=== PATIENT | female | born 1950 | race Caucasian/White ===

== ENCOUNTER 2021-02-05 15:36 | Observation (INO) | payer MEDICARE, OTHER ==
[2021-02-05] MEDS ORDERED: Metoclopramide 10 MG/2 ML SDV IVPUSH ONE (16:11)
[2021-02-05] MEDS ORDERED: diphenhydrAMINE 50 MG/ML SDV IVPUSH ONE (16:11)
--- NOTE | 2021-02-05 16:11 | EDM.PDOC ---
ED HPI GENERAL MEDICAL PROBLEM - General Stated Complaint: VOMITING AND DIZZINESS Time Seen by Provider: 02/05/21 15:40 Source of Information: Reports: Patient, Significant Other History Limitations: Reports: No Limitations - History of Present Illness INITIAL COMMENTS - FREE TEXT/NARRATIVE: Patient presents with acute onset severe nausea and vomiting. It started a little over an hour ago (between [id number]). 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 She at both breakfast and lunch at the school and felt fine until the N/V along with a single episode of diarrhea hit. She has vo mited around 5-6 times. Ambulance brought her and gave her a dose of Zofran 4 mg IV at the school and another dose en route. She is still complaining of severe nausea; denies any other symptoms. She has vomited and dry heaved a few times here in ER also. Her tells me that around ten years ago she had very similar symptoms after presumed food poisoning (fish); he had eaten the same thing and had no symptoms. He says her symptoms lasted 8 hours that time. Today at the school she ate both meals the same as the rest of the school ate; she did have fish last night for supper. - Related Data Allergies Allergy/AdvReac Type Severity Reaction Status Date / Time No Known Allergies Allergy Verified 02/05/21 16:01 Home Meds: Home Meds Calcium Carb & Citrate/Vit D3 [Calcium + Vitamin D3 Caplet] 1 each PO DAILY 06/23/13 [History] Levothyroxine 25 mcg PO DAILY 06/23/13 [History] Raloxifene [Evista] 60 mg PO DAILY 06/23/13 [History] Past Medical History - Past Health History Medical/Surgical History: Denies Medical/Surgical History Social & Family History - Living Situation & Occupation Living situation: Reports: , with Significant Other ED ROS GENERAL - Review of Systems Review Of Systems: See Below Constitutional: Reports: Malaise. Denies: Fever, Chills HEENT: Denies: Ear Pain, Throat Pain, Vision Change Respiratory: Denies: Shortness of Breath, Cough Cardiovascular: Denies: Chest Pain, Lightheadedness, Syncope GI/Abdominal: Reports: Diarrhea (once), Nausea, Vomiting. Denies: Abdominal Pain, Constipation : Denies: Dysuria, Flank Pain Musculoskeletal: Denies: Neck Pain, Shoulder Pain, Arm Pain, Back Pain, Hand Pain Skin: Denies: Cyanosis, Jaundice, Mottled, Pallor, Diaphoresis Neurological: Denies: Confusion, Dizziness, Headache, Seizure, Syncope, Trouble Speaking, Difficulty Walking Psychiatric: Denies: Agitation, Anxiety, Confusion ED EXAM, GI/ABD - Physical Exam Exam: See Below Exam Limited By: No Limitations General Appearance: Alert, WD/WN, No Apparent Distress Eyes: Bilateral: Normal Appearance, EOMI Ears: Normal External Exam, Hearing Grossly Normal Nose: Normal Inspection, No Blood Throat/Mouth: Normal Inspection, Normal Lips, Normal Voice, No Airway Compromise Head: Atraumatic, Normocephalic Neck: Normal Inspection, Full Range of Motion Respiratory/Chest: No Respiratory Distress, Lungs Clear, Normal Breath Sounds, No Accessory Muscle Use Cardiovascular: Regular Rate, Rhythm, No Murmur GI/Abdominal Exam: Normal Bowel Sounds, Soft, Non-Tender, No Organomegaly, No Distention Back Exam: Normal Inspection, Full Range of Motion. No: CVA Tenderness (L), CVA Tenderness (R) Extremities: Normal Inspection, Normal Range of Motion Neurological: Alert, Oriented, Normal Cognition, No Motor/Sensory Deficits Psychiatric: Normal Affect, Normal Mood Skin Exam: Warm, Dry, Intact, Normal Color, No Rash Course - Vital Signs Last Recorded V/S: Last Vital Signs Temp 97.9 F 02/05/21 21:00 Pulse 65 02/05/21 21:00 Resp 18 02/05/21 21:00 BP 109/65 02/05/21 21:00 Pulse Ox 99 02/05/21 21:00 - Orders/Labs/Meds Labs: Laboratory Tests 02/05/21 02/05/21 02/05/21 Range/Units 15:15 15:15 21:35 WBC 7.35 (5.00-10.00) 10^3/uL RBC 4.02 (3.80-5.50) 10^6/uL Hgb 11.8 L (12.0-16.0) g/dL Hct 36.3 L (37.0-47.0) % MCV 90.3 (82.0-92.0) fL MCH 29.4 (27.0-31.0) pg MCHC 32.5 (32.0-36.0) g/dL RDW 13.6 (11.5-14.5) % Plt Count 209 (150-400) 10^3/uL MPV 11.5 H (7.4-10.4) fL Immature Gran % (Auto) 0.1 (0.0-5.0) % Neut % (Auto) 49.0 L (50.0-70.0) % Lymph % (Auto) 41.2 H (20.0-40.0) % Gregory % (Auto) 7.2 (2.0-8.0) % Eos % (Auto) 2.0 (1.0-3.0) % Baso % (Auto) 0.5 (0.0-1.0) % Neut # (Auto) 3.59 (2.50-7.00) 10^3/uL Lymph # (Auto) 3.03 (1.00-4.00) 10^3/uL Gregory # (Auto) 0.53 (0.10-0.80) 10^3/uL Eos # (Auto) 0.15 (0.10-0.30) 10^3/uL Baso # (Auto) 0.04 (0.00-0.10) 10^3/uL Immature Gran # (Auto) 0.01 (0.00-0.50) 10^3/uL Sodium 139 (136-145) mmol/L Potassium 3.5 (3.5-5.1) mmol/L Chloride 103 (98-107) mmol/L Carbon Dioxide 24.2 (21.0-32.0) mmol/L Anion Gap 15.3 H (5-15) mmol/L BUN 23 H (7-18) mg/dL Creatinine 0.72 (0.51-1.17) mg/dL Est Cr Clr Drug Dosing TNP Estimated GFR (MDRD) > 60 mL/min Glucose 105 (70-140) mg/dL Calcium 8.9 (8.7-10.3) mg/dL Total Bilirubin 0.3 (0.2-1.0) mg/dL AST 16 (15-37) U/L ALT 24 (14-63) U/L Alkaline Phosphatase 49 (46-116) U/L C-Reactive Protein < 0.4 (0.0-0.9) mg/dL Total Protein 6.9 (6.4-8.2) g/dL Albumin 3.51 (3.40-5.00) g/dL Lipase 129 (73-393) U/L SARS CoV-2 RNA Rapid RYAN Negative (NEGATIVE) Meds: Medications Discontinued Medications Generic Name Dose Route Start Last Admin Trade Name Laurie PRN Reason Stop Dose Admin Diphenhydramine HCl 25 mg 02/05/21 16:11 02/05/21 16:22 Diphenhydramine 50 Mg/Ml Sdv IVPUSH 02/05/21 16:12 25 mg ONETIME ONE Administration Sodium Chloride 1,000 mls @ 999 mls/hr 02/05/21 16:29 02/05/21 17:00 Normal Saline IV 02/05/21 17:29 999 mls/hr .BOLUS ONE Administration Lorazepam 1 mg 02/05/21 17:50 02/05/21 17:58 Lorazepam 2 Mg/Ml Sdv IVPUSH 02/05/21 17:51 1 mg ONETIME ONE Administration Metoclopramide HCl 10 mg 02/05/21 16:11 02/05/21 16:27 Metoclopramide 10 Mg/2 Ml Sdv IVPUSH 02/05/21 16:12 10 mg ONETIME ONE Administration - Re-Assessments/Exams Free Text/Narrative Re-Assessment/Exam: 02/05/21 17:54 The 8 mg of Zofran wasn't helping noticeably. Reglan 10 mg with Benadryl 25 mg is helping modestly. Second liter of NS is running. Patient is tolerating the if she holds still. Any movement of her body or head triggers nausea. Re-exam of eyes shows a fine nystagmus with EOMs. No vertigo. [place] Given not performed. Discussed the previous episode and patient says it was very similar to today. They were in [place] when it started but they drove home to [place]. The 8-hour car ride was constant nausea and frequent vomiting. She came to ER in [place] and after a couple hours went home. After a total of, she estimates 12-20 hours, it resolved. Will give Lorazepam 1 mg IV and monitor a few hours extended ER, before determining whether she can go home or stay observation. I discussed with Shon Calderon NP with heads up and he agreed. 02/05/21 22:22 After a lengthy extended ER, patient thought she was feeling a little better but very hesitant to go home as she feels if she gets up she will vomit. She did try sitting up on the bed and it did trigger repeated vomiting. Will keep her in observation. Discussed with Shon day who accepts. Departure - Departure Time of Disposition: 22:21 Disposition: Refer to Observation Condition: Good Clinical Impression: Vomiting Qualifiers: Vomiting type: unspecified Vomiting Intractability: intractable Nausea presence: with nausea Qualified Code(s): R11.2 - Nausea with vomiting, unspecified - Discharge Information Sepsis Event Note (ED) - Focused Exam Vital Signs: Vital Signs Temp Pulse Resp BP Pulse Ox 02/05/21 21:00 97.9 F 65 18 109/65 99 02/05/21 18:30 84 16 104/58 L 100 02/05/21 17:45 62 18 135/56 L 96 02/05/21 17:01 54 L 18 121/60 97 02/05/21 16:39 56 L 16 125/61 100 02/05/21 16:23 52 L 18 133/66 99 02/05/21 15:56 97.2 F 63 18 138/78 95
[2021-02-05] MEDS ORDERED: Sodium Chloride 0.9% 1,000 ML IV ONE (16:29)
[2021-02-05 16:32] LABS: ANION GAP 15.3 mmol/L (5-15); CHLORIDE,CL 103 mmol/L (98-107); SODIUM,NA 139 mmol/L (136-145)
[2021-02-05] MEDS ORDERED: LORazepam 2 MG/ML SDV IVPUSH ONE (17:50)
[2021-02-05] MEDS ORDERED: Sodium Chloride 0.9% 10 ML Syringe FLUSH PRN (23:14)
[2021-02-05] MEDS: Ondansetron 4 MG/2 ML SDV IVPUSH SCH (23:28)
[2021-02-06] MEDS: Ondansetron 4 MG/2 ML SDV IVPUSH SCH ×2 (06:02→13:47)
--- NOTE | 2021-02-06 09:15 | PCM.HP.2 ---
H&P History of Present Illness - General Date of Service: 02/06/21 Admit Problem/Dx: Admission Diagnosis/Problem Admission Diagnosis/Problem Intractable vomiting Source of Information: Patient, Old Records, Provider, RN History Limitations: Reports: No Limitations - Related Data Allergies/Adverse Reactions: Allergies Allergy/AdvReac Type Severity Reaction Status Date / Time No Known Allergies Allergy Verified 02/05/21 16:01 Home Medications: Home Meds Calcium Carb & Citrate/Vit D3 [Calcium + Vitamin D3 Caplet] 1 each PO DAILY 06/23/13 [History] Levothyroxine 25 mcg PO DAILY 06/23/13 [History] Raloxifene [Evista] 60 mg PO DAILY 06/23/13 [History] ondansetron HCL [Zofran] 4 mg PO Q6H PRN #10 tablet 02/06/21 [Rx] Past Medical History - Past Health History Medical/Surgical History: Denies Medical/Surgical History HEENT History: Reports: Impaired Vision Gastrointestinal History: Reports: None Genitourinary History: Reports: None [employer] History: Reports: Musculoskeletal History: Reports: Arthritis - Past Surgical History HEENT Surgical History: Reports: Tonsillectomy GI Surgical History: Reports: Colonoscopy Female Surgical History: Reports: Hysterectomy Other Musculoskeletal Surgeries/Procedures:: right upper arm fx Social & Family History - Tobacco Use Tobacco Use Status *Q: Never Tobacco User - Recreational Drug Use Recreational Drug Use: No - Living Situation & Occupation Living situation: Reports: , with Significant Other H&P Review of Systems - Review of Systems: Review Of Systems: See Below General: Reports: No Symptoms HEENT: Reports: No Symptoms Pulmonary: Reports: No Symptoms Cardiovascular: Reports: No Symptoms Gastrointestinal: Reports: No Symptoms Skin: Denies: Dryness Neurological: Denies: Confusion, Pre-Existing Deficit Exam - Exam Exam: See Below - Vital Signs Vital Signs: Last Vital Signs Temp 98.2 F 02/06/21 06:05 Pulse 57 L 02/06/21 06:05 Resp 18 02/06/21 06:05 BP 105/63 02/06/21 06:05 Pulse Ox 94 L 02/06/21 06:05 Weight: 157 lb 3.2 oz - Exam Quality Assessment: No: Supplemental Oxygen General: Alert, Oriented, Cooperative. No: Mild Distress HEENT: Conjunctiva Clear, Hearing Intact, Mucosa Moist & [place], Pupils Equal Neck: Supple Lungs: Clear to Auscultation, Normal Respiratory Effort Cardiovascular: Regular Rate, Regular Rhythm GI/Abdominal Exam: Normal Bowel Sounds, Soft (Female) Exam: Deferred Extremities: No: Pedal Edema Peripheral Pulses: 2+: Radial (L), 3+: Radial (R) Skin: Warm, Dry, Intact Neurological: Normal Gait (per report), Normal Speech, Normal Tone, Sensation Intact Neuro Extensive - Mental Status: Alert, Oriented x3, Normal Mood/Affect, Normal Cognition Neuro Extensive - Motor, Sensory, Reflexes: CN II-XII Intact, Normal Gait, Normal Reflexes Psychiatric: Alert, Normal Affect, Normal Mood - Patient Data Lab Results Last 24 hrs: Laboratory Results - last 24 hr 02/05/21 02/05/21 02/05/21 Range/Units 15:15 15:15 21:35 WBC 7.35 (5.00-10.00) 10^3/uL RBC 4.02 (3.80-5.50) 10^6/uL Hgb 11.8 L (12.0-16.0) g/dL Hct 36.3 L (37.0-47.0) % MCV 90.3 (82.0-92.0) fL MCH 29.4 (27.0-31.0) pg MCHC 32.5 (32.0-36.0) g/dL RDW 13.6 (11.5-14.5) % Plt Count 209 (150-400) 10^3/uL MPV 11.5 H (7.4-10.4) fL Immature Gran % (Auto) 0.1 (0.0-5.0) % Neut % (Auto) 49.0 L (50.0-70.0) % Lymph % (Auto) 41.2 H (20.0-40.0) % [place] % (Auto) 7.2 (2.0-8.0) % Eos % (Auto) 2.0 (1.0-3.0) % Baso % (Auto) 0.5 (0.0-1.0) % Neut # (Auto) 3.59 (2.50-7.00) 10^3/uL Lymph # (Auto) 3.03 (1.00-4.00) 10^3/uL [place] # (Auto) 0.53 (0.10-0.80) 10^3/uL Eos # (Auto) 0.15 (0.10-0.30) 10^3/uL Baso # (Auto) 0.04 (0.00-0.10) 10^3/uL Immature Gran # (Auto) 0.01 (0.00-0.50) 10^3/uL Sodium 139 (136-145) mmol/L Potassium 3.5 (3.5-5.1) mmol/L Chloride 103 (98-107) mmol/L Carbon Dioxide 24.2 (21.0-32.0) mmol/L Anion Gap 15.3 H (5-15) mmol/L BUN 23 H (7-18) mg/dL Creatinine 0.72 (0.51-1.17) mg/dL Est Cr Clr Drug Dosing TNP Estimated GFR (MDRD) > 60 mL/min Glucose 105 (70-140) mg/dL Calcium 8.9 (8.7-10.3) mg/dL Total Bilirubin 0.3 (0.2-1.0) mg/dL AST 16 (15-37) U/L ALT 24 (14-63) U/L Alkaline Phosphatase 49 (46-116) U/L C-Reactive Protein < 0.4 (0.0-0.9) mg/dL Total Protein 6.9 (6.4-8.2) g/dL Albumin 3.51 (3.40-5.00) g/dL Lipase 129 (73-393) U/L SARS CoV-2 RNA Rapid RYAN Negative (NEGATIVE) Result Diagrams: 02/05/21 15:15 02/05/21 15:15 Sepsis Event Note - Focused Exam Vital Signs: Vital Signs Temp Pulse Resp BP Pulse Ox 02/06/21 06:05 98.2 F 57 L 18 105/63 94 L 02/06/21 01:56 98.0 F 65 16 100/57 L 97 02/05/21 23:47 97.8 F 52 L 18 93/52 L 96 Problem List Initiated/Reviewed/Updated: Yes Orders Last 24hrs: Active Orders 24 hr Category Date Time Status Patient Status [ADT] Routine ADT 02/05/21 22:24 Active Peripheral IV Care [RC] Care 02/05/21 23:14 Active Up With Assistance [RC] ASDIRECTED Care 02/05/21 22:58 Active Vital Signs [RC] 03,07,11,15,19,23 Care 02/05/21 22:58 Active Clear Liquid Diet [DIET] Diet 02/06/21 Breakfast Active Ondansetron [Zofran] Med 02/05/21 23:00 Active 8 mg IVPUSH Q6H Sodium Chloride 0.9% [Saline Flush] Med 02/05/21 23:14 Active 10 ml FLUSH Q8HR PRN Peripheral IV Insertion Adult [OM.PC] Routine Oth 02/05/21 23:14 Ordered Resuscitation Status Stat Resus Stat 02/05/21 22:42 Ordered Medication Orders Ondansetron HCl (Ondansetron 4 Mg/2 Ml Sdv) 8 mg IVPUSH Q6H SAIGE Last Admin: 02/06/21 06:02 Dose: Not Given Documented by: Admin: 02/05/21 23:28 Dose: 8 mg Documented by: MARGARET Sodium Chloride (Sodium Chloride 0.9% 10 Ml Syringe) 10 ml FLUSH Q8HR PRN PRN Reason: keep vein open Assessment/Plan Comment:: Please use this H&P as a combined DC summary as patient was seen same day Final diagnosis Gastroenteritis, clinical, suspect. HPI: Emilee is a 70 y/p female who was admitted in OBS status last night due to significant nausea/vomiting. 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 EMS on scene gave her dose of Zofran and repeated dose in route without resolution. Her history denotes similar symptoms a few years ago which was suggested to be gastroenteritis eating fish. Although she has ate fish multiple times since without incident she did admit to eating fish yesterday. Spouse also ate fish with no ill symptoms. Does have hypothyroidism however otherwise very healthy. ED course work-up, No fever, electrolytes liver indices infection markers all normal. fine nystagmus with EOMs, no focal deficit concerns, BUN 23, creatinine 0.72, hemoglobin 11.8 2 L isotonic saline. 8 mg of Zofran, Reglan 10 mg with Benadryl 25 mg some improvement in symptoms. COVID-19 negative Hospital course Lorazepam 1 mg IV and monitor a few hours extended ER, slept well overnight without symptoms. Out of bed to bathroom multiple times without nystagmus dizziness or vomiting. Hungry on rounds this morning with no focal neurological deficit. No more vomiting nausea or diarrhea. Vital signs good. No fever. Use any more Zofran throughout the night Medication changes/adjustments upon discharge Zofran, 4 mg p.o. every 6 hours as needed nausea vomiting - Mortality Measure Prognosis:: Good
[2021-02-06] MEDS ORDERED: Levothyroxine 25 MCG Tab PO SCH (09:30)
[2021-02-06] MEDS ORDERED: RALOXIFENE 60 MG PO SCH (09:30)
[2021-02-06 11:16] VITALS: BP 127/70; PULSE 76
== END 2021-02-06 14:05 | disposition home or self-care (01) ==
LOC: KA.ED 15:36 → KA.MS 22:24
PROVIDERS: ADMIT Nurse Practitioner Family; ATTEND Family Medicine
DX: R11.2 Nausea with vomiting, unspecified (principal); Z79.899 Other long term (current) drug therapy; Z98.890 Other specified postprocedural states; Z20.822 Contact with and (suspected) exposure to COVID-19
CPT/HCPCS: 36415; 80053; 83690; 85025; 86140; 96365; 96374; 96375; 99283; 99285-25; A9270-GY; G0378; J1200; J2060; J2405; J2765; J7030; U0002

== ENCOUNTER 2023-02-17 04:14 | Emergency (ER) | payer MEDICARE, OTHER ==
[2023-02-17] MEDS: Sodium Chloride 0.9% 10 ML Syringe FLUSH PRN (04:39)
[2023-02-17] MEDS: Ondansetron 4 MG/2 ML SDV IVPUSH ONE (04:45)
[2023-02-17] MEDS: Sodium Chloride 0.9% 1,000 ML IV ONE ×2 (04:51→05:54)
[2023-02-17 05:15] VITALS: BP 148/80; PULSE 71
[2023-02-17] MEDS: Ondansetron 4 MG/2 ML SDV IVPUSH PRN (05:58)
[2023-02-17] MEDS: Acetaminophen 325 MG Tab PO ONE (06:07)
== END 2023-02-17 07:07 | disposition home or self-care (01) ==
LOC: KA.ED 04:14
DX: R11.2 Nausea with vomiting, unspecified (principal); B34.9 Viral infection, unspecified; Z79.899 Other long term (current) drug therapy
CPT/HCPCS: 96361; 96374; 96376; 99283; A9270; J2405; J7030; J3490